=== PATIENT | female | born 1945 | race Caucasian/White ===

== ENCOUNTER 2023-03-20 08:15 | Outpatient (RCR) | payer MEDICARE, MEDICAID, SELFPAY ==
--- NOTE | 2023-03-18 14:32 | PT.OPEX ---
PT [place] Outpatient Eval PT [facility] Outpatient Eval Start: 03/17/23 13:17 Freq: Status: Active Protocol: Document 03/18/23 12:43 MLS (Rec: 03/18/23 14:28 MLS [email or web address]) E-signed By Stephanie Reyez DPT Physical Therapy Outpatient Evaluation Insurance Information Recert Due Date 06/15/23 Insurance Name Medicare B Medical Diagnosis M54.6 Chronic right sided thoracic back pain G89.29 Treating Diagnosis M54.2 Cervicalgia M54.6 Right thoracic pain Referring MD Patsy Kirkpatrick, DO Subjective Subjective Patient is a 78 year old female who presents to physical therapy with signs and symptoms consistent with right mid back pain for years. She states that she has done lots of lifting over the years and had a massive fall a long time ago. She reports that since then, she has had on and off mid back pain. she states that the last three months the pain has gotten worse. She reports that currently everything aggravates it, including standing, sleeping, sitting, driving, exercises, and all ADLs. She is in constant pain and then she will have waves where it gets worse. The only relief she gets will be if she bends forward or puts pressure on the spot with her hand or a paper towel roll. She states that she doesn't have any numbness and tingling into either arm. She reports that her sleep is dependent on how much she has to drink at night. She also sleeps with a roll of paper towels under the spot in her mid back to apply pressure and then puts a heating pad over it. She reports that she had PT in [place] in 2020 but did not get any relief. She states that she also had 4 injections , and nothing helped. She states that the only thing that helped was pain pills. She takes Tylenol now but it doesn't help. Her significant past medical history includes L TKA and Parkinsons. Patient would like to achieve less pain with daily activities through physical therapy sessions. Pain Comments Today: 8/10 on a 0-10 pain scale with 10 = extreme pain At its worst: 10/10 At its best: 8/10 Current Work Status Retired Occupation [employer], far[employer] Preferred Name [employer] Objective Other/Pertinent Objective SPINAL ALIGNMENT/POSTURE Kyphosis CERVICAL ROM Flexion: 50% increase pain Extension: 50% little relief of pain Right Rotation: 50% Left Rotation: 50% Right side bend: 25% Left Side bend: 25% Thoracic rotation 50% bilaterally, pain with left rotation SHOULDER AROM WNL grossly tested pain in right thoracic spine with shoulder flexion 90-160 NECK/SHOULDER MMT: Shoulder shrug: R 5/5 L 5/5 Shoulder flexion: R 5/5 L 5/5 Shoulder abduction: R 5/5 L 5/ 5 Shoulder External Rotation: R 5/5 L 5/5 Shoulder Internal Rotation: R 5/5 L 5/5 Elbow Flexion: R 5/5 L 5/5 Elbow Ext: R 5/5 L 5/5 SPECIAL TEST Spurlings Test: negative Bakody Sign: negative [employer]PALP[employer] [place]: Access Code: [email or web address] URL: [email or web address] Date: 03/18/2023 Prepared by: Stephanie Reyez Exercises - Seated Trunk Rotation - 1 x daily - 7 x weekly - 3 sets - 10 reps - Seated Cervical Retraction - 1 x daily - 7 x weekly - 3 sets - 10 reps Instructed on tennis ball trigger point release to right rhomboid, paraspinals Functional Test Performed & Score 24/50 0-4 = no disability 5-14 = mild disability 15-24 = moderate disability 25-34 = severe disability >34 = complete disability Assessment Assessment/Impression Pt is a 78 year old female who presents with concerns of chronic right sided thoracic and cervical pain. Signs and symptoms include pain with all activities, driving, sitting, and sleeping. Patient also has notable objective findings including limited and painful ROM and tenderness to multiple spots that are likely contributing to the problem. Patient is a good candidate for skilled therapy to target deficits described above. Skilled PT intervention is necessary for use of therapeutic exercise manual therapy, neuromuscular re- education, and therapeutic activity. Functional impairments include difficulty all ADLs and sleeping. See appropriate sections of PT eval for complete list of goals and POC. D/C plan and criteria is for pt to achieve the goals as listed below or until max rehab potential is met. Pt was agreeable with plan of care and goals established Primary Functional Limitations sitting ADLs driving sleeping Plan of Care Rehabilitation Potential Good Physical Therapy Goals ST. Patient will demonstrate consistent HEP compliance to ensure progress in reaching established goals during course of care. 2. Patient demonstrates 160 degrees of shoulder flexion without pain for ability to reach overhead into a high shelf, dress and bathe without limitations. 3. Patient is able to sleep without waking more than two times due to pain in a 6 hour time frame. 4. Patient will be able to sit for up to one hour without pain. LT. Pt will be able to look in all directions in order to perform ADLs and safe driving without pain. 6. Patient will be able to bend and lift household items from the floor to shoulder height to perform ADLs without pain. 7. Patient will report pain levels <2/10 with all activities in order to improve functional mobility at home, work and during functional leisure activities. 8. Patient will be able to ride her horse again. Coordination/Communication With Referral Source Treatment Plan/Direct Interventions Manual Therapy,Neuromuscular Re-ed,Therapeutic Activities, Therapeutic Exercises Patient Will Be Discharged From Therapy Independently Progressing Evaluation Billing Untimed Code Treatment Minutes 30 Complexity Low Certification Information Physician Comment/Change : Physician NPI Number #
== END 2023-07-07 15:12 | disposition home or self-care (01) ==
PROVIDERS: PCP Family Medicine; Visit Provider Family Medicine
DX: M54.6 Pain in thoracic spine (principal); G89.29 Other chronic pain; M54.2 Cervicalgia; Z51.89 Encounter for other specified aftercare
CPT/HCPCS: 97110; 97140; 97161

== ENCOUNTER 2024-05-18 11:15 | Outpatient (RCR) | payer MEDICARE, BC, SELFPAY | END 2024-07-26 08:35 | disposition home or self-care (01) | PROVIDERS: PCP Family Medicine; Visit Provider Anesthesiology | DX: M47.24 Other spondylosis with radiculopathy, thoracic region (principal); M54.50 Low back pain, unspecified; M54.6 Pain in thoracic spine; Z51.89 Encounter for other specified aftercare | CPT/HCPCS: 97110; 97140; 97161 ==